=== PATIENT | male | born 1955 | race Caucasian/White ===

== ENCOUNTER → 2017-10-07 | Outpatient (CLI) | payer BC ==
[2015-03-22 11:22] VITALS: BMI 27.0
[~2017-10-07] MED LIST: ACE325 PO; ACET-1966 PO; ALB18R INH; ALPR-445 PO; ASCO1CAP6 PO; BUP100 PO; BUPR-123 PO; BUPR-126 PO; BUPR-129 PO; BUPR-149 PO; BUPR-156 PO; BUPR300T56 PO; CHLO4TAB PO; CHOL200022 PO; CHOL500016 PO; CLIN300C99 PO; CYCL10TA29 PO; DIAZ-305 PO; DIME50TA83 PO; FENT1PAT40; GABA-549 PO; GLUC100026 PO; HYDR-385 PO; HYDR-4225 PO; HYDR-4309 PO; HYDR2TAB74 PO; IBUP800T37 PO; MAGN400C PO; MECL25TA9 PO; NAPR220C11 PO; ONDA4TAB97 PO; OXYC-870 PO; OXYC20TA99 PO; OXYGENHOME; PAN40 PO; PANT20TA27 PO; SUVO20TA; VENL-248 PO; VENL150C61 PO; VENL150T10 PO; VENL75CA58 PO; ZOLP-350 PO; ZOLP-358 PO; [UNRECOGNIZED DRUG - CODE] PO; [UNRECOGNIZED DRUG - CODE] PO; [UNRECOGNIZED DRUG - OTHER]
== END ==
LOC: AUD 09:45
PROVIDERS: ATTEND Otolaryngology
DX: R42 Dizziness and giddiness (principal); H91.93 Unspecified hearing loss, bilateral; H93.13 Tinnitus, bilateral
CPT/HCPCS: 92557; 92570